=== PATIENT | female | born 1995 ===

== ENCOUNTER 2019-09-13 17:34 | Emergency (ER) | payer OTHER ==
[~2019-09-13] VITALS: Ht 167.6 cm; Wt 91.6 kg
== END 2019-09-13 20:25 | disposition home or self-care (01) ==
LOC: ER 17:34
DX: J11.1 Influenza due to unidentified influenza virus with other respiratory manifestations (principal); B96.0 Mycoplasma pneumoniae [M. pneumoniae] as the cause of diseases classified elsewhere